=== PATIENT | female | born 1955 | race Caucasian/White ===

== ENCOUNTER 2017-06-17 07:26 | Day surgery (SDC) | payer MEDICAID ==
[~2017-06-17] VITALS: Ht 160 cm; Wt 113.4 kg
[~2017-06-17 07:26] MED LIST: AMLO10TA2 PO; ASPI-498 PO; CETI10TA80 PO; FAMO-12 PO; FURO40TA PO; INSLANTI SC; INSU100I24 SC; LOPE2CAP PO; LORA-622 PO; METO25TA5 PO; OME20T PO; POTA8TAB2 PO; SIMV-13 PO
[2017-06-17] MEDS ORDERED: LIDOCAINE 2%HCL (LOCAL ANESTH.) INJ 20ML MDV ONE (07:45)
[2017-06-17] MEDS ORDERED: IODIXANOL 320MG/ML 100ML BTL IV ONE (07:46)
[2017-06-17] MEDS ORDERED: fentaNYL CITRATE 100 MCG/2 ML VL ONE (07:51)
[2017-06-17] MEDS ORDERED: ANGIOMAX 250 MG VIAL IV ONE (07:51)
[2017-06-17] MEDS ORDERED: MIDAZOLAM HCL 1MG/1ML-2 ML VIAL ONE (07:52)
[2017-06-17] MEDS ORDERED: SODIUM CHL 0.9% 0 ML ONE (07:52)
[2017-06-17] MEDS ORDERED: VERAPAMIL 2.5MG/ML INJ 2ML VIAL IV ONE (08:10)
[2017-06-17] MEDS ORDERED: HEPARIN SODIUM (PORCINE) 5000 UNITS/ML 1ML VIAL ONE (08:33)
[2017-06-17] MEDS ORDERED: METOPROLOL TARTRATE 1MG/1ML-5ML VIAL IV ONE (08:34)
[2017-06-17] MEDS ORDERED: OPTISON 3ml Vial for INJ IV ONE (11:15)
== END 2017-06-17 14:50 | disposition home or self-care (01) ==
LOC: CATH 07:26
PROVIDERS: ATTEND Internal Medicine
DX: I25.10 Atherosclerotic heart disease of native coronary artery without angina pectoris (principal); I99.8 Other disorder of circulatory system; I51.9 Heart disease, unspecified; Z88.5 Allergy status to narcotic agent; Z88.8 Allergy status to other drugs, medicaments and biological substances; E66.01 Morbid (severe) obesity due to excess calories; Z68.41 Body mass index [BMI] 40.0-44.9, adult; I50.9 Heart failure, unspecified
CPT/HCPCS: 93458; C1769; C1894; J1644; J3010; J7030; 36600; 71045; 82805; 82962; 93005; 93306; 93886; 99152; 99153; J2250; Q9956; Q9967